=== PATIENT | male | born 1995 | race African-American/Black ===

== ENCOUNTER 2024-09-22 08:19 | Emergency (ER) | payer OTHER ==
[2024-09-22] MEDS ORDERED: predniSONE 20 MG TAB ONE (09:37)
== END 2024-09-22 09:14 | disposition still patient (30) ==
LOC: ERS 08:19
DX: L50.1 Idiopathic urticaria (principal); I10 Essential (primary) hypertension
CPT/HCPCS: 99283; J7512

== ENCOUNTER 2024-10-26 04:48 | Emergency (ER) | payer OTHER ==
[2024-10-26] MEDS ORDERED: Famotidine/PF 20 mg/2ml Vial ONE (04:55)
[2024-10-26] MEDS ORDERED: diphenhydrAMINE 50 MG/ML VIAL ONE (07:28)
[2024-10-26 09:25] LABS: #Basophils Less than 0.03 10x3/uL (0.0-0.2); #Eosinophils Less than 0.03 10x3/uL (0.0-0.7); #Monocytes 0.12 10x3/uL (0.11-0.59); #Neutrophils 11.73 10x3/uL (1.40-6.50); %Basophils 0.1 % (0.0-1.0); %Eosinophils 0.0 % (0.0-10.0); %Lymphocytes 2.9 % (21.0-51.0); %Monocytes 1.0 % (0.0-10.0); %Neutrophils 95.6 % (42.0-75.0); Hematocrit 42.5 % (42.0-52.0); Hemoglobin 13.9 g/dL (14.0-18.0); Mean Corpuscular Hemoglobin 30.0 pg (27.0-31.0); Mean Corpuscular Volume 91.8 fL (78.0-98.0); Platelet Count 251 10x3/uL (130-400); Red Blood Cell (RBC) Count 4.63 mill/uL (4.70-6.10); White Blood Cell (WBC) Count 12.27 10x3/uL (4.8-10.8)
[2024-10-26 09:41] LABS: ALT (SGPT) 19 U/L (Less than 45); AST (SGOT) 22 U/L (11-34); Albumin 3.6 g/dL (3.1-4.5); Alkaline Phosphatase 85 U/L (40-110); Anion Gap 14 mmol/L (10-20); BUN (Urea Nitrogen) 13 mg/dL (8.9-20.6); Bilirubin, Total 0.7 mg/dL (0.3-1.2); Calc. Creatinine Clearance 0 mL/min (70-130); Calcium 8.9 mg/dL (7.8-10.44); Carbon Dioxide 20 mmol/L (22-29); Chloride 109 mmol/L (98-107); Globulin 2.3 g/dL (2.4-3.5); Glucose 112 mg/dL (70-105); Potassium 4.2 mmol/L (3.5-5.1); Sodium 139 mmol/L (136-145)
[2024-10-26 10:28] LABS: Bacteria/HPF None Seen HPF (None Seen); CAUTI Indications for Culture Fever or rigors; Glucose, Urine (Dipstick) Normal (Negative); Leukocyte Negative Leu/uL (Negative); Protein, Urine (Dipstick) Negative (Neg-Trace); RBC/HPF 0-3 HPF (0-3); Specific Gravity, Urine 1.027 (1.002-1.036); WBC/HPF 0-3 HPF (0-3)
[2024-10-26 10:29] LABS: Urine Culture Reflex No No
[2024-10-26] MEDS ORDERED: VANCOMYCIN 2 GRAM/400 ML BAG ONE (15:12)
== END 2024-10-26 17:24 | disposition short-term general hospital (02) ==
LOC: ERS 04:48 → EEVIPCON 04:48 → ERS 17:24
DX: T78.3XXA Angioneurotic edema, initial encounter (principal); I10 Essential (primary) hypertension
CPT/HCPCS: 36430; 80053; 81001; 83605; 85025; 86850; 86900; 86901; 87040; 87086; 93005; 94760; 96365; 96366; 96374; 96375; J1200; J2543; J2919; J3375; P9059